=== PATIENT | female | born 1935 | race Caucasian/White ===

== ENCOUNTER → 2018-08-20 15:13 | Outpatient (CLI) | payer MEDICARE, MEDICAID, SELFPAY ==
--- NOTE | 2018-08-20 15:00 | TISS_PTH ---
PATIENT: GUY NICOLAS LOC: [facility] U#:[id number] AGE/SX: 89/F ROOM: RE08/20/[address]: Dr. Amanda Soares MD : [id number] BED: DIS: SPEC #: [id number] RECD: 08/20/18 21:00 STATUS: TANYA MALIHA #: [id number] PAPA: 08/20/18 15:[address]: Gurdeep Willson DEPT: SURGICAL PATHOLOGY RECD BY: Rashel Baez ENTERED: 08/21/18 08:51 SP TYPE: Tissue Bx OTHR DR: MD Dr. Moe King MD Tissues: Perineum, NOS Procedures: Surgery Specimen Level IV Comments: @ Ordering doctor for SUIV edited from to @ by ANTOINE at 08/21/18 0951 @ Submitting doctor edited from to DR.JWEEMA Harris by ANTOINE at 08/21/18 0951 HEADER OPERATION: Punch biopsy PRE-OP DIAGNOSIS: Punch biopsy TISSUE SUBMITTED: Perineum MICROSCOPIC DIAGNOSIS Perineum, punch biopsy: Moderate chronic inflammation, dermal fibrosis and hyperkeratosis. Negative for malignancy. LEILA:enoc 08/22/18 MICROSCOPIC DESCRIPTION Slides are reviewed. GROSS DESCRIPTION Received in fixative is one container labeled with the patient's name and designated punch biopsy. The specimen consists of a punch biopsy of crump-white skin measuring 0.2 cm in diameter and 0.3 cm in length. The entire specimen is submitted in one cassette. / Ania 08/21/18 TC:3 CPT: 78907
--- NOTE | 2018-08-20 15:30 | RAD_ITS ---
STUDY: X-RAY - CERVICAL SPINE REASON FOR EXAM: Female, 82 years old. Pain for many years TECHNIQUE: 4 view(s) of the cervical spine were obtained. COMPARISON: 2010 FINDINGS: Normal craniovertebral junction. There are degenerative changes of the anterior atlantoaxial articulation. Normal odontoid process. There is straightening of the normal cervical lordosis. Normal vertebral bodies and posterior osseous elements. There is evidence of anterior spondylosis at the C3-C4 level. There is evidence of fusion at the C4 C5, C5 C6, C6 C7 and C7-T1 levels. There is evidence of facet joint osteoarthritis. Normal visualized soft tissue structures. RAD/Cerv Spine 2 or 3 Views IMPRESSION: Multilevel degenerative changes with previous fusion from C4 to T1. No fracture Electronically Signed: Sarwat Otero MD at 17:45 EDT , Service support ,
== END ==
PROVIDERS: Family Provider Internal Medicine Infectious Disease; PCP Internal Medicine Infectious Disease; Referring Provider Anesthesiology Pain Medicine; Visit Provider Anesthesiology Pain Medicine
DX: M54.2 Cervicalgia (principal)
CPT/HCPCS: 72040; 88305

== ENCOUNTER → 2018-12-17 11:25 | Outpatient (CLI) | payer MEDICARE, MEDICAID, SELFPAY ==
--- NOTE | 2018-12-17 11:35 | RAD_ITS ---
STUDY: X-RAY - CERVICAL SPINE REASON FOR EXAM: Female, 83 years old. Neck pain. TECHNIQUE: 3 view(s) of the cervical spine were obtained. COMPARISON: August 20, 2018. FINDINGS: Normal anterior atlantoaxial articulation. Normal odontoid process. Postoperative changes of bony fusion C4-C5 through C6-C7. Straightening of the normal cervical lordosis. Disc space narrowing and marginal osteophytes C3-C4 and C7-T1. The soft tissue structures are unremarkable. RAD/Cerv Spine 2 or 3 Views IMPRESSION: Stable postoperative changes of cervical fusion, C4-C7. Degenerative changes proximal and distal to the fusion site. Electronically Signed: Samson Saravia MD at 5:33 EST , Service support ,
== END ==
PROVIDERS: Family Provider Internal Medicine Infectious Disease; PCP Internal Medicine Infectious Disease; Referring Provider Anesthesiology Pain Medicine; Visit Provider Anesthesiology Pain Medicine
DX: M54.2 Cervicalgia (principal)
CPT/HCPCS: 72040

== ENCOUNTER → 2019-05-27 | Outpatient (CLI) | payer MEDICARE, MEDICAID, SELFPAY ==
--- NOTE | 2019-05-27 13:55 | RAD_ITS ---
STUDY: X-RAY - CERVICAL SPINE REASON FOR EXAM: Female, 83 years old. Chronic neck pain. TECHNIQUE: 2 view(s) of the cervical spine were obtained. COMPARISON: 08/20/2018, 12/17/2018 FINDINGS: Normal anterior atlantoaxial articulation. Normal odontoid process. Again seen is long segment fusion of the cervical spine from C4-C7. Stable prominent degenerative disc disease at C3-C4 and C7-T1. No gross acute abnormality. The soft tissue structures are unremarkable. RAD/Cerv Spine 2 or 3 Views IMPRESSION: Limited 2 view study of the cervical spine shows no change. Long segment fusion, and degenerative changes. Electronically Signed: Jackson Guerra MD at 17:24 EDT , Service support ,
== END | disposition home or self-care (01) ==
LOC: RAD 13:46
PROVIDERS: Family Provider Internal Medicine Infectious Disease; PCP Internal Medicine Infectious Disease; Referring Provider Anesthesiology Pain Medicine; Visit Provider Anesthesiology Pain Medicine
DX: M54.2 Cervicalgia (principal)
CPT/HCPCS: 72040

== ENCOUNTER → 2019-09-24 | Outpatient (CLI) | payer MEDICARE, MEDICAID, SELFPAY ==
--- NOTE | 2019-09-24 12:26 | MRI_ITS ---
STUDY: MRI LUMBAR SPINE WITHOUT CONTRAST REASON FOR EXAM: Female, 83 years old. Radiculopathy. Spondylolisthesis. Degenerative disc disease. Back pain. TECHNIQUE: Standardized fat and water weighted pulse sequences were obtained in the sagittal and axial planes. COMPARISON: X-rays dated July 16, 2017 FINDINGS: Infrarenal abdominal aortic aneurysm measuring up to 5.5 cm x 5 cm with aortoiliac stenting (axial image 14 series 6). Paraspinal muscle atrophy. Normal retroperitoneum. Hepatomegaly. Small renal cyst. Lumbar lordosis preserved. No significant scoliosis. Patient slightly tilted to the right. Conus medullaris terminates normally at the T12 level. Acute/subacute compression deformities with bone marrow edema at the L2 levels. No retropulsion. No dislocation. L2 superior endplate loss of approximately 30%. Chronic L1 superior endplate loss of approximately 60 %. Chronic L3 superior endplate compression fracture with approximately 30% height loss. T12-L1: Shallow disc bulge. Normal bilateral facet joints. Normal central canal and bilateral lateral recesses. Normal bilateral intervertebral neural foramina. Mild endplate spondylosis. L1-2: Shallow disc bulge. Facet joint arthrosis. Normal central canal and bilateral lateral recesses. Normal bilateral intervertebral neural foramina. Mild endplate spondylosis. L2-3: Shallow disc bulge. Facet joint arthrosis. Normal central canal and bilateral lateral recesses. Normal bilateral intervertebral neural foramina. Moderate endplate spondylosis with additional degenerative/reactive edema. L3-4: Shallow disc bulge. Facet joint arthrosis. Normal central canal and bilateral lateral recesses. Normal bilateral intervertebral neural foramina. Minimal endplate spondylosis. L4-5: Disc bulge/uncovering with minimal central canal narrowing. Facet joint arthrosis. Normal bilateral lateral recesses. Bilateral neural foraminal narrowing without impingement. Grade 1 degenerative spondylolisthesis. Vacuum phenomenon. Minimal endplate spondylosis. L5-S1: Disc bulge with mild central canal narrowing. Facet joint arthrosis. Normal bilateral lateral recesses. Bilateral neural foraminal narrowing with impingement. Moderate endplate spondylosis. Vacuum phenomenon. MRI/Spine Lumbar (Routine) IMPRESSION: Acute/subacute L2 superior endplate compression deformity without retropulsion Chronic L1 and L3 vertebral body compression deformity Multilevel intervertebral disc disease with mild central canal narrowing at L4-5 and L5-S1 Multilevel neural foraminal narrowing with impingement of the exiting L5 nerve roots Grade 1 spondylolisthesis at L4-5 Exaggerated lumbar lordosis with moderate osteoarthritis 5.5 cm infrarenal abdominal aortic aneurysm with aortoiliac stent Electronically Signed: Mehdi Rivera DO at 14:26 EST Tel , Service support ,
== END | disposition home or self-care (01) ==
PROVIDERS: Family Provider Student in an Organized Health Care Education/Training Program; PCP Student in an Organized Health Care Education/Training Program; Referring Provider Orthopaedic Surgery Orthopaedic Surgery of the Spine; Visit Provider Orthopaedic Surgery Orthopaedic Surgery of the Spine
DX: M43.16 Spondylolisthesis, lumbar region (principal); M51.36 Other intervertebral disc degeneration, lumbar region; M54.16 Radiculopathy, lumbar region
CPT/HCPCS: 72148

== ENCOUNTER → 2020-09-23 14:31 | Outpatient (CLI) | payer MEDICARE, MEDICAID, SELFPAY ==
--- NOTE | 2020-09-23 14:34 | CT_ITS ---
STUDY: CTA OF THE ABDOMINAL AORTA AND BILATERAL LOWER EXTREMITIES REASON FOR EXAM: Female, 84 years old. Abdominal aortic aneurysm, prior grafting, hypertension. Prior cholecystectomy, appendectomy. RADIATION DOSAGE (If Supplied By Facility): CTDIvol = ( 29.62 ) mGy, DLP = ( 783.86 ) mGycm TECHNIQUE: Axial CT angiography multi-detector data acquisition was obtained from the lung bases to the pubic symphysis following intravenous administration of IV 75mL Isovue-370. Axial images and MIP images were reconstructed from the axial data set. Post-processing of the angiographic images was performed, with multiplanar reformation and 3D reconstruction. Individualized dose optimization techniques were used for this CT. TECHNICAL QUALITY: Good COMPARISON: None. Descriptors of Narrowing: None (0%) Mild (< 50%) Moderate (50-70%) Severe (70-90%) Subtotal/Total Occlusion (90-100%) Non-Evaluable (technically non-diagnostic FINDINGS: Abdominal aorta: 3.8 cm abdominal aortic aneurysm treated with aortic stent graft which is patent. No enhancement of the aneurysm sac to suggest endoleak. Celiac and superior mesenteric arteries: No demonstrated narrowing. Inferior mesenteric artery: Excluded and occluded. Right renal artery(arteries): No demonstrated narrowing. Left renal artery(arteries): No demonstrated narrowing. Right common iliac artery: No demonstrated narrowing. Right external iliac artery: No demonstrated narrowing. Right internal iliac artery: No demonstrated narrowing. Left common iliac artery: No demonstrated narrowing. Left external iliac artery: No demonstrated narrowing. Left internal iliac artery: No demonstrated narrowing. CT/CT ANGIO ABD&PEL W/O&W/DYE IMPRESSION: 3.8 cm abdominal aortic aneurysm treated with aortic stent graft which is patent and without evidence of endoleak. Electronically Signed: Zack Mcqueen MD at 17:19 EST Tel , Service support ,
== END ==
PROVIDERS: PCP Student in an Organized Health Care Education/Training Program; Referring Provider Surgery Vascular Surgery; Visit Provider Surgery Vascular Surgery
DX: I71.4 Abdominal aortic aneurysm, without rupture (principal); I65.23 Occlusion and stenosis of bilateral carotid arteries; I70.213 Atherosclerosis of native arteries of extremities with intermittent claudication, bilateral legs
CPT/HCPCS: 74174; Q9967

== ENCOUNTER 2022-02-07 08:54 | Outpatient (CLI) | payer MEDICARE, MEDICAID, SELFPAY ==
--- NOTE | 2022-02-07 09:04 | AAVD_ITS ---
Reason For Study: AAA Aorta Measurements Aorta Doppler Measurements Proximal aorta measures2.3 x 1.71cm. in cross- Peak systolic flow velocities within the proximal sectional axis. aorta measure 99.0 cm/sec. Proximal aorta measures2.18cm. in longitudinal Peak systolic flow velocities within the mid aorta axis. measure 96.4 cm/sec. Mid aorta measures1.74 x 1.58cm. in cross- Peak systolic flow velocities within the distal sectional axis. aorta measure 83.4 cm/sec. Mid aorta measures1.71cm. in longitudinal axis. Distal aorta measures1.56 x 1.41cm. in cross- sectional axis. Distal aorta measures1.47cm. in longitudinal axis. Sac measures 3.78 x 3.97 x 4.06 cm. No flow noted in the residual sac. Left Iliac Artery Left iliac artery measures .94 x .95 cm. in the cross-sectional axis. Left iliac artery measures .9 cm. in the longitudinal axis. Peak systolic velocity in the left iliac artery measures 77.1 cm/sec. Right Iliac Artery Right iliac artery measures 1.32 x 1.33 cm. in the cross-sectional axis. Right iliac artery measures 1.27 cm. in the longitudinal axis. Peak systolic velocity in the right iliac artery measures 40.8 cm/sec. Procedure Aorta IVC Iliac vasculature or bypass grafts 59209. The exam was diagnostic. Exam performed in department. VL/Abd Aortic/IVC Duplex scan Interpretation Summary No evidence of aortic iliac stenosis or aneurysm noted. Ordering Physician: Patrick López Performed By: Miguel Saldana RVBalbina
== END 2022-02-07 23:59 | disposition home or self-care (01) ==
LOC: CVS 08:57
PROVIDERS: PCP Student in an Organized Health Care Education/Training Program; Visit Provider Surgery Vascular Surgery
DX: I71.4 Abdominal aortic aneurysm, without rupture (principal); F17.200 Nicotine dependence, unspecified, uncomplicated
CPT/HCPCS: 93978

== ENCOUNTER 2023-02-22 10:02 | Observation (INO) | payer MEDICARE, MEDICAID, SELFPAY ==
[2023-02-22] VITALS (10 sets, daily range): BP systolic 99–224; BP diastolic 48–91; PULSE 50–66; RESP 16–18; TEMP 36.1–36.8; O2SAT 94–99; BMI 26.2; BMI 25.4
--- NOTE | 2023-02-22 10:18 | EX.ED.DYSGE1 ---
HPI History of Present Illness Chief Complaint: Hypertension Detail of Chief Complaint: High blood pressure Informant: patient Narrative Narrative: Patient presents to the emergency department for complaint of elevated blood pressure. Patient was seen as an outpatient and had some studies done this morning so she has abdominal aortic duplex and ABIs. She was noted to be hypertensive and referred to the emergency department. Patient denies headache. She denies chest pain. She describes some mild dyspnea and just has not felt well for couple of days. She denies urinary symptoms. Patient thinks she was given her medications this morning as she is at an assisted living facility but she tells me that she is a poor historian and does not remember things well. [facility] Medical History (Updated 02/22/23 @ 12:[address] Jasbir Knowles, ) COVID-19 Home Medications duloxetine 30 mg capsule,delayed release 60 mg PO BREAKFAST 07/27/16 [History Last Taken 02/21/23] gabapentin 300 mg capsule 300 mg PO DAILY 07/27/16 [History Last Taken 02/21/23] acetaminophen 500 mg tablet (Tylenol Extra Strength) 1,000 mg PO TID 01/28/23 [History Last Taken 02/21/23] cholecalciferol (vitamin D3) 50 mcg (2,000 unit) capsule 50 mcg PO DAILY 01/28/23 [History Last Taken 02/21/23] estradiol 0.01% (0.1 mg/gram) vaginal cream 1 applic vaginal MOWEFR . 01/28/23 [History Last Taken 02/20/23] losartan 25 mg tablet 75 mg PO DAILY . 01/28/23 [History Last Taken 02/22/23] melatonin 5 mg capsule 5 mg PO QHS SLEEP 01/28/23 [History Last Taken 02/21/23] methimazole 5 mg tablet 2.5 mg PO DAILY 01/28/23 [History Last Taken 02/21/23] metoprolol succinate 50 mg tablet,extended release 24 hr 1 tablet PO DAILY 01/28/23 [History Last Taken 02/22/23] sennosides 8.6 mg-docusate sodium 50 mg capsule (Senna Plus) 1 tab-cap PO BID 01/28/23 [History Last Taken 02/21/23] sertraline 25 mg tablet 75 mg PO DAILY 01/28/23 [History Last Taken 02/21/23] polyethylene glycol 3350 17 gram/dose oral powder (Miralax) 17 g PO DAILY CONSTIPATION 02/22/23 [History Last Taken 02/21/23] Allergy/AdvReac Type Severity Reaction Status Date / Time No Known Allergies Allergy Verified 02/22/23 10:05 Social History Smoking Status: Unknown if ever smoked ROS ROS ED Review of Systems ROS Unobtainable: other Constitutional Constitutional ED: Reports lethargy; Denies chills, fever(s), sweats or weight loss Eyes Eyes: Denies blurry vision, change in vision or diplopia ENT ENT ED: Denies rhinorrhea or sore throat Cardiovascular Cardiovascular: Denies chest pain, orthopnea or racing heartbeat Respiratory/Chest Respiratory/Chest: Reports dyspnea and dyspnea on exertion; Denies cough, orthopnea or sputum Gastrointestinal Gastrointestinal: Denies abdominal pain, diarrhea, nausea or vomiting Genitourinary Genitourinary ED: Denies dysuria, hematuria or urinary frequency Musculoskeletal Musculoskeletal: Denies arthralgias, back pain, myalgias or neck pain Integumentary Denies abscess, Abrasions or rash Neurologic Neurologic: Reports weakness; Denies headache(s) Psychiatric Psychiatric: Denies anxiety, depression or suicidal thoughts Endocrine Endocrinology: Denies polydipsia, polyphagia or polyuria Hematologic/Lymphatic Hematologic/Lymphatic: Denies easy bleeding, easy bruising or lymphadenopathy Allergic/Immunologic Allergic/Immunologic ED: Denies mouth swelling, tongue swelling or urticaria EXAM Physical Exam Const Vital Signs: 02/22/23 10:03 02/22/23 10:17 02/22/23 10:18 Temperature 97 F L Temperature Source Temporal Pulse Rate 50 L 53 L Respiratory Rate 18 16 Respiratory Pattern Normal Blood Pressure 215/91 H 224/91 H Blood Pressure Mean 132 135 Pulse Ox 98 98 Oxygen Delivery Method Room Air Room Air 02/22/23 10:42 02/22/23 12:01 Temperature Temperature Source Pulse Rate 57 L 56 L Respiratory Rate 16 17 Respiratory Pattern Blood Pressure 215/88 H 205/90 H Blood Pressure Mean 130 117 Pulse Ox 97 Oxygen Delivery Method Room Air Positive well nourished and well developed General Appearance ED: well developed and NAD HEENT Reports TM's clear and moist mucous membranes normocephalic and atraumatic; Negative for trauma or tenderness Tympanic Membrane ED: Yes TM's clear Eyes PERRL and EOMs intact bilaterally General Eye ED: Negative for pale conjunctiva or scleral icterus Neck no lymphadenopathy, supple and no JVD General: Negative for tenderness Chest Wall inspection of chest normal and palpation of chest normal Chest: Negative for tenderness Resp normal respiratory effort and clear to auscultation bilaterally Effort and Inspection: Negative for respiratory distress or pain with movement Auscultation: Negative for rhonchi, wheezes or diminished lung sounds Cardio regular rate, regular rhythm, S1 normal heart sound, S2 normal heart sound and no murmurs Peripheral Pulses: pulses 2+ throughout GI normal to inspection, nondistended, normoactive bowel sounds, soft to palpation, non-tender, non-distended and no masses Back/Spine no CVA tenderness and no thoracic nor lumbar tenderness Extremity normal to inspection General Extremety ED: Negative for edema General Extremity: Negative for edema Neuro oriented x3, CN's II-XII intact bilaterally, no sensory deficits noted and gait normal Sensorium / Orientation: awake, alert, oriented to person, oriented to place and oriented to time Motor Exam: strength 5/5 throughout and strength abnormal Psych mental status grossly normal Skin no rashes or lesions noted and no wounds MDM MDM MDM Narrative Medical decision making narrative: Patient presents to the emergency department complaint of elevated blood pressures today. Her abdominal ultrasound to evaluate her aorta was unremarkable. Patient was given hydralazine 10 mg IV. CBC with differential was normal. Chemistries unremarkable. Urinalysis was normal. Patient's blood pressure remained similarly after hydralazine with systolic around 215 and diastolic did improve into the 80s. I ordered 5 more milligrams of hydralazine IV. I discussed case with hospitalist who will admit patient and recommended 0.2 mg of clonidine p.o. Patient will be admitted for hypertensive urgency to manage her blood pressures. Lab Data Labs: Laboratory Results - last 24 hr 02/22/23 02/22/23 02/22/23 10:13 10:13 10:13 WBC 9.6 RBC 4.24 Hgb 13.7 Hct 42.7 MCV 100.7 H MCH 32.3 H MCHC 32.1 RDW Std Deviation 50.0 H RDW Coeff of Carolyn 13.3 Plt Count 306 MPV 9.0 Immature Gran % (Auto) 0.300 Neut % (Auto) 63.9 Lymph % (Auto) 23.8 [place] % (Auto) 9.4 Eos % (Auto) 2.3 Baso % (Auto) 0.3 Absolute Neuts (auto) 6.1 Absolute Lymphs (auto) 2.29 Nucleated RBC % 0 PT 13.8 INR 1.1 Sodium 138 Potassium 3.9 Chloride 102 Carbon Dioxide 29.0 Anion Gap 7 BUN 21 H Creatinine 0.78 Estim Creat Clear Calc 39.27 Est GFR (MDRD) Af Amer 89 Est GFR (MDRD) Non-Af 74 BUN/Creatinine Ratio 26.8 H Glucose 112 H Calcium 10.1 Troponin I High Sens 11 Urine Color Urine Clarity Urine pH Ur Specific Twain Urine Protein Urine Glucose (UA) Urine Ketones Urine Occult Blood Urine Nitrite Urine Bilirubin Urine Urobilinogen Ur Leukocyte Esterase Urine RBC Urine WBC Ur Squamous Epith Cells Urine Bacteria Urine Mucus 02/22/23 10:40 WBC RBC Hgb Hct MCV MCH MCHC RDW Std Deviation RDW Coeff of Carolyn Plt Count MPV Immature Gran % (Auto) Neut % (Auto) Lymph % (Auto) [place] % (Auto) Eos % (Auto) Baso % (Auto) Absolute Neuts (auto) Absolute Lymphs (auto) Nucleated RBC % PT INR Sodium Potassium Chloride Carbon Dioxide Anion Gap BUN Creatinine Estim Creat Clear Calc Est GFR (MDRD) Af Amer Est GFR (MDRD) Non-Af BUN/Creatinine Ratio Glucose Calcium Troponin I High Sens Urine Color Yellow Urine Clarity Clear Urine pH 8.0 Ur Specific Twain 1.015 Urine Protein Negative Urine Glucose (UA) Normal Urine Ketones Negative Urine Occult Blood Negative Urine Nitrite Negative Urine Bilirubin Negative Urine Urobilinogen Normal Ur Leukocyte Esterase 25 H Urine RBC 0 SEEN Urine WBC 0-5 SEEN Ur Squamous Epith Cells 0 SEEN Urine Bacteria 0 SEEN Urine Mucus 0 SEEN EKG Initial EKG: Attestation: I personally reviewed and interpreted this EKG as follows: Comments: Sinus bradycardia with a rate of 54 bpm with no acute ST segment changes Discharge Plan Triage Chief Complaint: Hypertension ED Provider: Jasbir Knowles Dx/Rx/DC Orders Clinical Impression: Hypertensive urgency, History of Parkinson's disease, History of chronic back pain Prescriptions: No Action methimazole 5 mg tablet 2.5 mg PO DAILY acetaminophen [Tylenol Extra Strength] 500 mg tablet 1,000 mg PO TID cholecalciferol (vitamin D3) 50 mcg (2,000 unit) capsule 50 mcg PO DAILY metoprolol succinate 50 mg tablet extended release 24 hr 1 tablet PO DAILY sertraline 25 mg tablet 75 mg PO DAILY estradiol 0.01 % (0.1 mg/gram) cream 1 applic vaginal MOWEFR losartan 25 mg tablet 75 mg PO DAILY Senna Plus 8.6-50 mg capsule 1 tab-cap PO BID melatonin 5 mg capsule 5 mg PO QHS polyethylene glycol 3350 [Miralax] 17 gram/dose Powder 17 g PO DAILY gabapentin 300 MG capsule 300 mg PO DAILY duloxetine 30 MG capsule 60 mg PO BREAKFAST Primary Care Provider: Adreinne Mac Referrals: Adrienne Mac MD [Primary Care Provider] - Disposition Disposition: Acute Care Hospital [facility]
[2023-02-22 10:32] LABS: Absolute Lymphocyte Count 2.29 X10^3/uL (0.83-4.51); Absolute Neutrophil Count 6.1 X10^3/uL (2.0-7.7); Basophil# 0.03 X10^3/uL; Basophil% 0.3 % (0-1); Eosinophil# 0.22 X10^3/uL; Eosinophils% 2.3 % (0-5); Hematocrit 42.7 % (37-47); Hemoglobin 13.7 g/dL (12.0-15.0); Lymphocyte # 2.29 X10^3/ul (0.83-4.51); Lymphocyte % 23.8 % (19-41); Mean Corp Hgb Conc 32.1 g/dL (32-36); Mean Corpuscular Hgb 32.3 pg (27.0-32.0); Mean Corpuscular Volume 100.7 fL (81-99); Monocyte% 9.4 % (0-10); NRBC Flagged by Analyzer 0 % (0-5); Neutrophil # 6.14 X10^3/uL (2.7-7.7); Neutrophil % 63.9 % (47-70); Platelet Count 306 K/mm3 (150-450); RBC Distribution Width CV 13.3 % (11.6-14.6); Red Blood Count 4.24 M/mm3 (4.2-5.4); White Blood Count 9.6 K/mm3 (4.4-11.0)
[2023-02-22] MEDS: 0.9% Normal Saline 1,000 ML 150 ML IV (10:40)
[2023-02-22 10:41] LABS: International Normalized Ratio 1.1; Prothrombin Time (Protime)PT. 13.8 SECONDS (11.7-14.9)
[2023-02-22] MEDS: hydrALAZINE 20 MG/ML Vial 10 MG IV ×2 (10:41→14:11)
[2023-02-22 10:44] LABS: Bacteria 0 SEEN /hpf (None Seen); Mucous, Urine 0 SEEN /hpf (<or=2+); Red Blood Cells-Urine 0 SEEN /hpf (0-5); Squamous Epithelial Cells - UA 0 SEEN /hpf (5-10)
[2023-02-22 10:49] LABS: Anion Gap 7 (5-15); BUN 21 mg/dL (7-18); BUN/Creat Ratio 26.8 RATIO (10-20); Calcium,Total 10.1 mg/dL (8.5-10.1); Chloride 102 mmol/L (98-107); Creatinine, Serum 0.78 mg/dL (0.55-1.02); EST Glomerular Filtration Rate 74 mL/min (>60); Est Glom Filt Rate - Afr Amer 89 mL/min (>60); Estimated Creatinine Clearance 39.27 ml/min; Glucose 112 mg/dL (74-106); Potassium 3.9 mmol/L (3.5-5.1); Sodium Level 138 mmol/L (136-145); Troponin-I HS 11 pg/mL (3.0-54.0)
[2023-02-22 10:52] LABS: Color, Urine Yellow (Yellow); Glucose, Dipstick Normal (Normal); Ketone-Dipstick Negative (Negative); Leukocyte Esterase-Dipstick 25 /ul (Negative); Nitrite-Dipstick Negative (Negative); Occult Blood-Urine Negative /ul (Negative); Protein-Dipstick Negative (Negative); Specific Gravity, Urine 1.015 (1.002-1.030); Urine Bilirubin Dipstick Negative (Negative); Urine Clarity Clear (Clear); Urine Urobilinogen Normal (Normal)
[2023-02-22 11:48] LABS: White Blood Cells 0-5 SEEN /hpf (0-5)
--- NOTE | 2023-02-22 11:58 | HP.PCM.HOS_ITS ---
HPI - General General Date of Admission: 02/22/23 Date of Service: 02/22/23 Chief Complaint: elevated blood pressure HPI Narrative GUY NICOLAS, is a 87 F with a PMH as outlined who presents via the ED on 02/22/2023 with a complaint of elevated blood pressure. She had been seen on outpatient basis and was sent in due to her blood pressure being up in the 200s systolic. She denied any headache, chest pain, palpitations, dizziness, nausea, vomiting or diarrhea. She admitted to occasional shortness of breath. Revie wof systems was otherwise negative. She says she did take her BP meds this morning. Vials were BP of 215/88, ME of 57, RR of 16 and she was saturating at 97% on room air. CBC was unremarkable and BMP was also unremarkable. Urinalysis was largely normal. EKG showed no acute ST changes. She is being admitted to be managed for hypertensive urgency. [facility] Medical History (Updated 02/22/23 @ 12:[address] Jasbir Knowles, ) COVID-19 Home Medications duloxetine 30 mg capsule,delayed release 60 mg PO BREAKFAST 07/27/16 [History Last Taken 02/21/23] gabapentin 300 mg capsule 300 mg PO DAILY 07/27/16 [History Last Taken 02/21/23] acetaminophen 500 mg tablet (Tylenol Extra Strength) 1,000 mg PO TID 01/28/23 [History Last Taken 02/21/23] cholecalciferol (vitamin D3) 50 mcg (2,000 unit) capsule 50 mcg PO DAILY 01/28/23 [History Last Taken 02/21/23] estradiol 0.01% (0.1 mg/gram) vaginal cream 1 applic vaginal MOWEFR . 01/28/23 [History Last Taken 02/20/23] losartan 25 mg tablet 75 mg PO DAILY . 01/28/23 [History Last Taken 02/22/23] melatonin 5 mg capsule 5 mg PO QHS SLEEP 01/28/23 [History Last Taken 02/21/23] methimazole 5 mg tablet 2.5 mg PO DAILY 01/28/23 [History Last Taken 02/21/23] metoprolol succinate 50 mg tablet,extended release 24 hr 1 tablet PO DAILY 01/28/23 [History Last Taken 02/22/23] sennosides 8.6 mg-docusate sodium 50 mg capsule (Senna Plus) 1 tab-cap PO BID 01/28/23 [History Last Taken 02/21/23] sertraline 25 mg tablet 75 mg PO DAILY 01/28/23 [History Last Taken 02/21/23] polyethylene glycol 3350 17 gram/dose oral powder (Miralax) 17 g PO DAILY CONSTIPATION 02/22/23 [History Last Taken 02/21/23] Allergy/AdvReac Type Severity Reaction Status Date / Time No Known Allergies Allergy Verified 02/22/23 10:05 Social History Smoking Status: Former smoker ROS Constitutional Constitutional: Denies anorexia, change in weight, fatigue, fever(s), malaise or weakness Eyes Eyes: Denies change in vision ENT HEENT: Denies dysphagia or headache(s) Cardiovascular Cardiovascular: Denies chest pain, dyspnea on exertion, edema, lightheadedness, orthopnea, palpitations, rapid heart rate or syncope Respiratory/Chest Respiratory/Chest: Denies cough, dyspnea, productive cough, shortness of breath at rest or shortness of breath with exertion Gastrointestinal Gastrointestinal: Reports constipation; Denies diarrhea, nausea or vomiting Genitourinary Genitourinary: Denies burning urination, dysuria or hematuria Musculoskeletal Musculoskeletal: Denies arthralgias or joint pain Neurologic Neurologic: Denies confusion, dizziness, focal weakness, headache(s), numbness or seizure-like activity Psychiatric Psychiatric: Denies anxiety or depression Endocrine Endocrinology: Denies change in body appearance Hematologic/Lymphatic Hematologic/Lymphatic: Denies anemia Vital Signs Vital Signs Vital Signs: 02/22/23 10:03 02/22/23 10:17 02/22/23 10:18 Temperature 97 F L Temperature Source Temporal Pulse Rate 50 L 53 L Respiratory Rate 18 16 Respiratory Pattern Normal Blood Pressure 215/91 H 224/91 H Blood Pressure Mean 132 135 Pulse Ox 98 98 Oxygen Delivery Method Room Air Room Air 02/22/23 10:42 Temperature Temperature Source Pulse Rate 57 L Respiratory Rate 16 Respiratory Pattern Blood Pressure 215/88 H Blood Pressure Mean 130 Pulse Ox 97 Oxygen Delivery Method Room Air Weight Weight: 167 lb 5.294 oz Body Mass Index (BMI) 26.2 Physical Exam Const alert, oriented x3 and no apparent distress General Appearance: cooperative HEENT normocephalic, head/scalp atraumatic, hearing grossly normal bilaterally and moist oral mucous membranes Mouth: oral and palatal mucosa normal Eyes PERRL, EOMs intact bilaterally and conjunctivae normal Neck no lymphadenopathy and supple Resp normal respiratory effort, no retractions, no use of accessory muscles and clear to auscultation bilaterally Cardio regular rate, regular rhythm, S1 normal heart sound, S2 normal heart sound and no murmurs GI normal to inspection, nondistended, normoactive bowel sounds, soft to palpation, non-tender and non-distended Extremity normal to inspection, full ROM and no clubbing, cyanosis or edema Neuro oriented x3, CN's II-XII intact bilaterally and moves all extremities Sensorium / Orientation: awake and alert Coordination / Balance: [id number] test normal Motor Exam: strength 5/5 throughout Psych affect normal Results Lab / Micro Data Result Diagrams: 02/22/23 10:13 02/22/23 10:13 Labs: Laboratory Results - last 24 hr 02/22/23 10:13: WBC 9.6, RBC 4.24, Hgb 13.7, Hct 42.7, MCV 100.7 H, MCH 32.3 H, MCHC 32.1, RDW Std Deviation 50.0 H, RDW Coeff of Carolyn 13.3, Plt Count 306, MPV 9.0, Immature Gran % (Auto) 0.300, Neut % (Auto) 63.9, Lymph % (Auto) 23.8, [place] % (Auto) 9.4, Eos % (Auto) 2.3, Baso % (Auto) 0.3, Absolute Neuts (auto) 6.1, Absolute Lymphs (auto) 2.29, Nucleated RBC % 0 02/22/23 10:13: PT 13.8, INR 1.1 02/22/23 10:13: Sodium 138, Potassium 3.9, Chloride 102, Carbon Dioxide 29.0, Anion Gap 7, BUN 21 H, Creatinine 0.78, Estim Creat Clear Calc 39.27, Est GFR (MDRD) Af Amer 89, Est GFR (MDRD) Non-Af 74, BUN/Creatinine Ratio 26.8 H, Glucose 112 H, Calcium 10.1, Troponin I High Sens 11 02/22/23 10:40: Urine Color Yellow, Urine Clarity Clear, Urine pH 8.0, Ur Specific [place] 1.015, Urine Protein Negative, Urine Glucose (UA) Normal, Urine Ketones Negative, Urine Occult Blood Negative, Urine Nitrite Negative, Urine Bilirubin Negative, Urine Urobilinogen Normal, Ur Leukocyte Esterase 25 H, Urine RBC 0 SEEN, Urine WBC 0-5 SEEN, Ur Squamous Epith Cells 0 SEEN, Urine Bacteria 0 SEEN, Urine Mucus 0 SEEN Assessment & Plan Assessment/Plan (1) Hypertensive urgency: PLAN: Plan #Hypertensive urgency * patient presented at outpatient imaging for abdominal USG to evaluate her pre existing abdominal aortic aneurysm. She was found to be markedly hypertensive there and referred to ED * BP in the 215s systolic in [facility] ED. She says she took her BP meds this morning but doesnt remember the names * was given IV hydralazine in the ED. * will admit to PCU * give 0.2mg x 1 of clonidine * on metoprolol 50mg daily as well as losartan 75mg daily. Will increase metoprolol to 100mg daily and increase losartan to 100mg daily. Add on HCTZ 25mg daily * IV hydralazine prn * #History of atrial fibrillation: on metoprolol #Hyperthyroidism: on methimazole #Depression; on sertraline DVT prophylaxis: lovenox COde status: Full code unverified * Patient counseled extensively about different types of CODE STATUS including full code, DNR CCA and DNR CCA. Patient appeared to be uncomfortable and confused and kept saying she did not know. We will therefore enter as full code for now. Total [id number] time 16 minutes. Total time spent on evaluation and management of patient, reviewing chart and specialist notes, discussing plan with patient, discussion with nursing and ancillary staff as well as documentation: 78 mins Charges/Coding Visit Charges Inpatient E&M: 88623 Init Hosp L3 Procedures Hospitalists Procedures: 40620 Advncd Care Plan 30 Min
[2023-02-22] MEDS: hydrALAZINE 20 MG/ML Vial 5 MG IV (12:08)
[2023-02-22] MEDS: cloNIDine HCl 0.2 MG Tablet PO (12:32)
--- NOTE | 2023-02-22 13:26 | ECHOD_ITS ---
Reason For Study: HTN Procedure This was a 2D Doppler, Color Flow transthoracic echocardiogram. The study was technically difficult. Exam performed portable in patient room. Left Ventricle Normal LV size. Mild concentric left ventricular hypertrophy. The left ventricular ejection fraction is 65 %. Unable to assess diastolic function based on available data. Right Ventricle Normal right ventricle. Atria The left and right atria are normal. Mitral Valve Mild diffuse mitral valve thickening. Trivial mitral valve insufficiency. Tricuspid Valve Normal tricuspid valve. Aortic Valve The aortic valve is not well visualized in the short axis view. Mild diffuse aortic valve thickening. There is no aortic stenosis. No aortic valve insufficiency. Pulmonic Valve The pulmonic valve is not well visualized. Great Vessels The aortic root is not well visualized. Pericardium/Pleural Epicardial fat. MMode/2D Measurements & Calculations LVIDd: 5.3 cm IVSd: 0.92 cm LVOT diam: 2.0 cm LVIDs: 3.2 cm LVPWd: 0.69 cm LVOT area: 3.0 cm2 RVDd: 3.7 cm FS: 39.6 % LA dimension: 3.9 cm LAV(MOD-bp): 45.4 ml LA A4 area: 14.8 cm2 LAV(MOD-bp) Indexed: 24.0 ml/m2 LAV(MOD-sp2): 63.5 ml LAV(MOD-sp4): 33.1 ml RA A4 area: 12.0 cm2 Time Measurements MV dec time: 0.23 sec Doppler Measurements & Calculations MV E max chas: 67.5 cm/sec Lat Peak E' Chas: 10.1 cm/sec Med Peak E' Chas: 4.9 cm/sec MV A max chas: 105.1 cm/sec E/E' lat: 6.7 E/E' med: 13.8 MV E/A: 0.64 MV V2 max: 112.2 cm/sec MV P1/2t max chas: 79.6 cm/sec Ao V2 max: 174.3 cm/sec MV max P.0 mmHg MV P1/2t: 79.0 msec Ao max P.1 mmHg MV V2 mean: 54.0 cm/sec MV dec slope: 295.0 cm/sec2 Ao V2 mean: 108.8 cm/sec MV mean P.4 mmHg Ao mean P.6 mmHg MV V2 VTI: 32.7 cm MVA(P1/2t): 2.8 cm2 Ao V2 VTI: 28.6 cm MVA(VTI): 2.2 cm2 AV (velocity ratio): 0.82 CAMI(I,D): 2.5 cm2 CAMI(V,D): 2.0 cm2 LV V1 max: 112.5 cm/sec SV(LVOT): 71.3 ml PA V2 max: 132.7 cm/sec LV V1 max P.1 mmHg LV V1 mean P.5 mmHg LV V1 mean: 73.1 cm/sec LV V1 VTI: 23.6 cm TR max chas: 188.7 cm/sec TR max P.2 mmHg ECHO/Echo Complete Interpretation Summary The study was technically difficult. Mild concentric left ventricular hypertrophy. The left ventricular ejection fraction is 65 %. Mild diffuse aortic valve thickening. Mild diffuse mitral valve thickening. Ordering Physician: Princess Erwin Performed By: Ramses Cooley RCS
[2023-02-22] MEDS: Acetaminophen 500 MG Tablet 1000 MG PO ×2 (14:10→22:04)
[2023-02-22] MEDS: hydroCHLOROthiazide 25 MG Tablet PO (14:10)
[2023-02-22] MEDS: 0.9% Saline Lock 10 ML Syringe IV (14:14)
[2023-02-22 14:26] LABS: Troponin-I HS 14 pg/mL (3.0-54.0)
[2023-02-22 17:37] LABS: Troponin-I HS 16 pg/mL (3.0-54.0)
[2023-02-22] MEDS: MELATONIN 10 MG TABLET 5 MG PO (22:04)
[2023-02-22] MEDS: Senna/Docusate Sodium 1 Tablet PO (22:04)
[2023-02-23 03:51] VITALS: BP 128/66; PULSE 60; RESP 16; TEMP 36.4; O2SAT 94
[2023-02-23] MEDS: Acetaminophen 500 MG Tablet 1000 MG PO ×3 (06:53→21:25)
[2023-02-23 07:43] LABS: Absolute Lymphocyte Count 2.32 X10^3/uL (0.83-4.51); Basophil# 0.04 X10^3/uL; Basophil% 0.4 % (0-1); Eosinophil# 0.17 X10^3/uL; Eosinophils% 1.6 % (0-5); Hematocrit 39.4 % (37-47); Hemoglobin 12.7 g/dL (12.0-15.0); Lymphocyte # 2.32 X10^3/ul (0.83-4.51); Lymphocyte % 21.6 % (19-41); Mean Corp Hgb Conc 32.2 g/dL (32-36); Mean Corpuscular Hgb 32.2 pg (27.0-32.0); Mean Platelet Vol. 9.2 fl (6.2-12.0); Monocyte# 1.22 X10^3/uL; Monocyte% 11.3 % (0-10); NRBC Flagged by Analyzer 0 % (0-5); Neutrophil # 6.97 X10^3/uL (2.7-7.7); Neutrophil % 64.7 % (47-70); Platelet Count 296 K/mm3 (150-450); RBC Distribution Width CV 13.7 % (11.6-14.6); RBC Distribution Width SD 50.1 fl (35.1-43.9); Red Blood Count 3.94 M/mm3 (4.2-5.4); White Blood Count 10.8 K/mm3 (4.4-11.0)
[2023-02-23 08:23] LABS: Anion Gap 5 (5-15); BUN 34 mg/dL (7-18); BUN/Creat Ratio 28.1 RATIO (10-20); Calcium,Total 9.2 mg/dL (8.5-10.1); Chloride 106 mmol/L (98-107); Creatinine, Serum 1.21 mg/dL (0.55-1.02); EST Glomerular Filtration Rate 45 mL/min (>60); Est Glom Filt Rate - Afr Amer 54 mL/min (>60); Estimated Creatinine Clearance 32.45 ml/min; Glucose 120 mg/dL (74-106); Potassium 3.9 mmol/L (3.5-5.1); Sodium Level 136 mmol/L (136-145)
[2023-02-23 08:48] VITALS: BP 115/55; PULSE 54; RESP 14; TEMP 36.6; O2SAT 92
[2023-02-23 08:51] VITALS: O2SAT 94
[2023-02-23] MEDS: 0.9% Saline Lock 10 ML Syringe IV (09:11)
[2023-02-23] MEDS: 0.9% Normal Saline 1,000 ML 100 ML IV (09:11)
[2023-02-23] MEDS: Enoxaparin 40 MG/0.4 ML Syringe SC (09:14)
[2023-02-23] MEDS: DULoxetine Hcl 60 MG Capsule PO (09:14)
[2023-02-23] MEDS: Senna/Docusate Sodium 1 Tablet PO ×2 (09:15→21:25)
[2023-02-23] MEDS: Sertraline 50 MG Tablet 75 MG PO (09:15)
[2023-02-23] MEDS: Cholecalciferol (VIT D3) 25 MCG TABLET (1,000 UNITS) 50 MCG PO (09:15)
[2023-02-23] MEDS: Methimazole 5 MG Tablet 2.5 MG PO (09:16)
[2023-02-23 09:18] VITALS: BP 115/55; PULSE 54
[2023-02-23] MEDS: Metoprolol(XL)Succ 100 MG Tablet PO (09:18)
[2023-02-23] MEDS: Gabapentin 300 MG Capsule PO (09:23)
--- NOTE | 2023-02-23 10:57 | NURSING ---
spoke with daughter Allison Turpin and gave update
--- NOTE | 2023-02-23 11:21 | PN_ITS ---
Subjective Subjective Patient seen and examined. She had no active complaints today. She had an uneventful night. Review of symptoms otherwise negative. Her BP has improved. Her metoprolol dose was increased yesterday, and HR is now down to the 50s. SHe has otherwise remained hemodynamically stable. Objective Data Objective Data Vital Signs: Vital Signs Temp Pulse Resp BP Pulse Ox O2 Del Method 98 F 54 L 14 115/55 L 94 Room Air 02/23/23 08:48 02/23/23 09:18 02/23/23 08:48 02/23/23 09:18 02/23/23 08:51 02/23/23 08:51 Oxygen Delivery Method Room Air Weight: 162 lb 14.746 oz Body Mass Index (BMI) 25.4 Intake & Output: Intake and Output for Last 24 Hours 02/21/23 02/22/23 02/23/23 23:59 23:59 23:59 Intake Total 620 / 620 Output Total 950 / 1350 400 / 400 Balance -330 / -730 -400 / -400 Lab / Micro Data Result Diagrams: 02/23/23 07:10 02/23/23 07:10 Labs: Laboratory Results - last 24 hr 02/22/23 10:40: Urine RBC 0 SEEN, Urine WBC 0-5 SEEN, Ur Squamous Epith Cells 0 SEEN, Urine Bacteria 0 SEEN, Urine Mucus 0 SEEN 02/22/23 13:55: Troponin I High Sens 14 02/22/23 16:34: Troponin I High Sens 16 02/23/23 07:10: WBC 10.8, RBC 3.94 L, Hgb 12.7, Hct 39.4, MCV 100.0 H, MCH 32.2 H, MCHC 32.2, RDW Std Deviation 50.1 H, RDW Coeff of Carolyn 13.7, Plt Count 296, MPV 9.2, Immature Gran % (Auto) 0.400, Neut % (Auto) 64.7, Lymph % (Auto) 21.6, [place] % (Auto) 11.3 H, Eos % (Auto) 1.6, Baso % (Auto) 0.4, Absolute Neuts (auto) 7.0, Absolute Lymphs (auto) 2.32, Nucleated RBC % 0 02/23/23 07:10: Sodium 136, Potassium 3.9, Chloride 106, Carbon Dioxide 25.0, Anion Gap 5, BUN 34 H, Creatinine 1.21 H, Estim Creat Clear Calc 32.45, Est GFR (MDRD) Af Amer 54 L, Est GFR (MDRD) Non-Af 45 L, BUN/Creatinine Ratio 28.1 H, Glucose 120 H, Calcium 9.2 Radiography Diagnostic Testing: Radiology Impression Echocardiogram 02/22/23 13:26 Interpretation Summary The study was technically difficult. Mild concentric left ventricular hypertrophy. The left ventricular ejection fraction is 65 %. Mild diffuse aortic valve thickening. Mild diffuse mitral valve thickening. Ordering Physician: Princess Erwin Performed By: Ramses Cooley RCS Physical Exam Const alert, oriented x3 and no apparent distress General Appearance: cooperative HEENT normocephalic, head/scalp atraumatic, hearing grossly normal bilaterally and moist oral mucous membranes Eyes PERRL, EOMs intact bilaterally and conjunctivae normal Neck no lymphadenopathy and supple Resp normal respiratory effort, no retractions, no use of accessory muscles and clear to auscultation bilaterally Cardio regular rate, regular rhythm, S1 normal heart sound, S2 normal heart sound and no murmurs GI normal to inspection, nondistended, normoactive bowel sounds, soft to palpation, non-tender and non-distended Extremity normal to inspection, full ROM, normal capillary refill and no clubbing, cyanosis or edema Skin General Skin Exam: no breakdown Neuro oriented x3, CN's II-XII intact bilaterally and moves all extremities Sensorium / Orientation: awake and alert Coordination / Balance: [id number] test normal Motor Exam: strength 5/5 throughout Psych affect normal Assessment & Plan Assessment/Plan (1) Hypertensive urgency: PLAN: Plan #Hypertensive urgency * resolved. BP is much better controlled today * will reduce metoprolol to 50mg daily due to her HR going down. On losartan 100mg daily and HCTZ 25mg daily * IV hydralazine prn * * #History of atrial fibrillation: on metoprolol #Hyperthyroidism: on methimazole #Depression; on sertraline DVT prophylaxis: lovenox COde status: Full code unverified * Total time spent on evaluation and management of patient, reviewing chart and specialist notes, discussing plan with patient, discussion with nursing and ancillary staff as well as documentation: 45 mins Charges/Coding Visit Charges Inpatient E&M: 25101 Subs Hosp L2
--- NOTE | 2023-02-23 11:32 | CASEMGMT ---
DASH HORTA DC Planning: Face to face with Pt. Pt alert and agreeable to answering questions. Pt states she is from [facility] but states she is not certain of her level of care (NH vs [place]). Pt states she uses a w/c to get to her puzzle activities and meals. Pt states she can ambulate short distances with a walker. Reviewed MERLOS form with pt but pt states she does not understand what this RN CM is explaining. Pt provided this RN CM permission to call her daughter Allison to review. Phone call placed to Allison, form reviewed and Allison denied any questions. Notified Allison that a copy of the MERLOS form would be placed in pt's room. Allison expressed understanding and agreement. Reviewed pt's LOC at [facility] with Allison who states pt is in the NH section. Call placed to [facility] and per Modesta pt is a director long term care resident in the intermediate level of care. Plan: Return to [facility] ILOC. Elias Choi RN CM
[2023-02-23 14:52] VITALS: BP 140/71; PULSE 61; RESP 16; TEMP 36.5; O2SAT 97
[2023-02-23] MEDS: hydroCHLOROthiazide 25 MG Tablet PO (15:01)
[2023-02-23] MEDS: Losartan Potassium 100 MG Tablet PO (15:01)
--- NOTE | 2023-02-23 17:15 | CASEMGMT ---
Social Work Note GLORIA contacted Cristy Rosario to inquire about needs for patient to return. Cristy Rosario will need discharge instructions via fax [phone] or [employer]. GLORIA sent updates via [employer]. GLORIA contacted patient's daughter, Allison, and introduced herself and role as [facility] Personal Security Specialist. GLORIA reviewed discharge plan for Cristy Rosario and inquired about transportation. Allison agreed plan is to return to [facility] and states she can transport if patient is ready tomorrow. Allison is able to transport patient after 1pm and requests to be contacted when patient is ready for discharge. Green sheet on chart. Plan: Cristy Rosario, darren to transport after 1pm Lary Andersen MSW, [place]
[2023-02-23 21:00] VITALS: BP 123/55; PULSE 55; RESP 16; TEMP 36.6; O2SAT 95
[2023-02-23] MEDS: MELATONIN 10 MG TABLET 5 MG PO (21:25)
[2023-02-24 03:52] VITALS: BP 159/65; PULSE 56; RESP 16; TEMP 36.4; O2SAT 96
[2023-02-24 04:51] LABS: Absolute Lymphocyte Count 2.37 X10^3/uL (0.83-4.51); Absolute Neutrophil Count 5.3 X10^3/uL (2.0-7.7); Basophil# 0.03 X10^3/uL; Basophil% 0.3 % (0-1); Eosinophil# 0.37 X10^3/uL; Eosinophils% 4.1 % (0-5); Hematocrit 38.8 % (37-47); Hemoglobin 12.5 g/dL (12.0-15.0); Lymphocyte # 2.37 X10^3/ul (0.83-4.51); Lymphocyte % 26.2 % (19-41); Mean Corp Hgb Conc 32.2 g/dL (32-36); Mean Corpuscular Hgb 31.8 pg (27.0-32.0); Mean Corpuscular Volume 98.7 fL (81-99); Mean Platelet Vol. 8.9 fl (6.2-12.0); Monocyte# 0.98 X10^3/uL; Monocyte% 10.8 % (0-10); NRBC Flagged by Analyzer 0 % (0-5); Neutrophil # 5.26 X10^3/uL (2.7-7.7); Neutrophil % 58.3 % (47-70); Platelet Count 267 K/mm3 (150-450); RBC Distribution Width CV 13.2 % (11.6-14.6); RBC Distribution Width SD 48.1 fl (35.1-43.9); Red Blood Count 3.93 M/mm3 (4.2-5.4)
[2023-02-24 05:18] LABS: Anion Gap 3 (5-15); BUN 30 mg/dL (7-18); BUN/Creat Ratio 36.5 RATIO (10-20); Calcium,Total 9.1 mg/dL (8.5-10.1); Chloride 109 mmol/L (98-107); Creatinine, Serum 0.82 mg/dL (0.55-1.02); EST Glomerular Filtration Rate 70 mL/min (>60); Est Glom Filt Rate - Afr Amer 85 mL/min (>60); Estimated Creatinine Clearance 47.89 ml/min; Glucose 114 mg/dL (74-106); Potassium 3.7 mmol/L (3.5-5.1); Sodium Level 137 mmol/L (136-145)
[2023-02-24] MEDS: Acetaminophen 500 MG Tablet 1000 MG PO ×2 (06:21→12:51)
[2023-02-24 07:25] VITALS: O2SAT 95
[2023-02-24 08:52] VITALS: BP 156/73; PULSE 52; RESP 16; TEMP 36.6; O2SAT 96
[2023-02-24] MEDS: Enoxaparin 40 MG/0.4 ML Syringe SC (09:01)
[2023-02-24] MEDS: Losartan Potassium 100 MG Tablet PO (09:02)
[2023-02-24] MEDS: Methimazole 5 MG Tablet 2.5 MG PO (09:02)
[2023-02-24] MEDS: hydroCHLOROthiazide 25 MG Tablet PO (09:02)
[2023-02-24] MEDS: Senna/Docusate Sodium 1 Tablet PO (09:02)
[2023-02-24 09:03] VITALS: BP 156/73; PULSE 52
[2023-02-24] MEDS: Metoprolol(XL)Succ 50 MG Tablet PO (09:03)
[2023-02-24] MEDS: Sertraline 50 MG Tablet 75 MG PO (09:03)
[2023-02-24] MEDS: DULoxetine Hcl 60 MG Capsule PO (09:04)
[2023-02-24] MEDS: Cholecalciferol (VIT D3) 25 MCG TABLET (1,000 UNITS) 50 MCG PO (09:06)
[2023-02-24] MEDS: Gabapentin 300 MG Capsule PO (09:14)
--- NOTE | 2023-02-24 10:05 | DS.PCM_ITS ---
Providers Date of Admission: 02/22/23 Primary Care Physician: Dr. Adrienne Mac MD Reason For Visit: HYPOERTENSIVE URGENCY Diagnosis Discharge Diagnosis (1) Hypertensive urgency: Status: Acute Code(s): I16.0 - Hypertensive urgency Plan #Hypertensive urgency * resolved. BP is much better controlled today * will reduce metoprolol to 50mg daily due to her HR going down. On losartan 100mg daily and HCTZ 25mg daily * IV hydralazine prn * * #History of atrial fibrillation: on metoprolol #Hyperthyroidism: on methimazole #Depression; on sertraline DVT prophylaxis: lovenox COde status: Full code unverified * Total time spent on evaluation and management of patient, reviewing chart and specialist notes, discussing plan with patient, discussion with nursing and ancillary staff as well as documentation: 45 mins Medications at Discharge Home Medications duloxetine 30 mg capsule,delayed release 60 mg PO BREAKFAST 07/27/16 gabapentin 300 mg capsule 300 mg PO DAILY 07/27/16 acetaminophen 500 mg tablet (Tylenol Extra Strength) 1,000 mg PO TID 01/28/23 cholecalciferol (vitamin D3) 50 mcg (2,000 unit) capsule 50 mcg PO DAILY 01/28/23 estradiol 0.01% (0.1 mg/gram) vaginal cream 1 applic vaginal MOWEFR . 01/28/23 melatonin 5 mg capsule 5 mg PO QHS SLEEP 01/28/23 methimazole 5 mg tablet 2.5 mg PO DAILY 01/28/23 sennosides 8.6 mg-docusate sodium 50 mg capsule (Senna Plus) 1 tab-cap PO BID 01/28/23 sertraline 25 mg tablet 75 mg PO DAILY 01/28/23 polyethylene glycol 3350 17 gram/dose oral powder (Miralax) 17 g PO DAILY CONSTIPATION 02/22/23 hydrochlorothiazide 25 mg tablet 25 mg PO DAILY #30 tabs 02/24/23 losartan 100 mg tablet 100 mg PO DAILY #30 tabs 02/24/23 metoprolol succinate 25 mg tablet,extended release 24 hr 25 mg PO DAILY #30 tabs 02/24/23 Weight / BMI Weight Weight: 162 lb 14.746 oz Body Mass Index (BMI) 25.4 ABG / Lab / Microbiology Data Result Diagrams: 02/24/23 04:30 02/24/23 04:30 Laboratory: Laboratory Results - last 24 hr 02/24/23 04:30: Sodium 137, Potassium 3.7, Chloride 109 H, Carbon Dioxide 25.0, Anion Gap 3 L, BUN 30 H, Creatinine 0.82, Estim Creat Clear Calc 47.89, Est GFR (MDRD) Af Amer 85, Est GFR (MDRD) Non-Af 70, BUN/Creatinine Ratio 36.5 H, Glucose 114 H, Calcium 9.1 02/24/23 04:30: WBC 9.0, RBC 3.93 L, Hgb 12.5, Hct 38.8, MCV 98.7, MCH 31.8, MCHC 32.2, RDW Std Deviation 48.1 H, RDW Coeff of Carolyn 13.2, Plt Count 267, MPV 8.9, Immature Gran % (Auto) 0.300, Neut % (Auto) 58.3, Lymph % (Auto) 26.2, [place] % (Auto) 10.8 H, Eos % (Auto) 4.1, Baso % (Auto) 0.3, Absolute Neuts (auto) 5.3, Absolute Lymphs (auto) 2.37, Nucleated RBC % 0 D/C Instructions Discharge Diet: Low fat / Low cholesterol Weight Bearing Status: Weight bearing as tolerated Call your doctor if you observe: Fever of 101 or Higher, Shortness of breath, Dizziness, Swelling in the ankles, Chest pain and Increased palpitations (irregu lar heartbeat) Discharge Plan Admission Admit Date/Time: 02/22/23 12:07 Primary Reason for Your Visit: hypertensive urgency Attending Provider: Princess Erwin Primary Care Provider: Adrienne Mac Instructions Patient Instructions: ED Hypertension, Established, ED High Blood Pressure Hypertension Discharge Orders/Prescriptions Prescriptions: New hydrochlorothiazide 25 mg Tablet 25 mg PO DAILY Qty: 30 2RF losartan 100 mg Tablet 100 mg PO DAILY Qty: 30 2RF metoprolol succinate 25 mg tablet extended release 24 hr 25 mg PO DAILY Qty: 30 2RF Continued methimazole 5 mg tablet 2.5 mg PO DAILY acetaminophen [Tylenol Extra Strength] 500 mg tablet 1,000 mg PO TID cholecalciferol (vitamin D3) 50 mcg (2,000 unit) capsule 50 mcg PO DAILY sertraline 25 mg tablet 75 mg PO DAILY estradiol 0.01 % (0.1 mg/gram) cream 1 applic vaginal MOWEFR Senna Plus 8.6-50 mg capsule 1 tab-cap PO BID melatonin 5 mg capsule 5 mg PO QHS polyethylene glycol 3350 [Miralax] 17 gram/dose Powder 17 g PO DAILY gabapentin 300 MG capsule 300 mg PO DAILY duloxetine 30 MG capsule 60 mg PO BREAKFAST Discontinued metoprolol succinate 50 mg tablet extended release 24 hr 1 tablet PO DAILY losartan 25 mg tablet 75 mg PO DAILY Referrals / Follow Up: Adrienne Mac MD [Primary Care Provider] - Within 2 Weeks Disposition Disposition (needs filled in before D/C Order can be placed): Home, Self Care
--- NOTE | 2023-02-24 11:29 | TREXTCAR_ITS ---
Diet Diet Order/Speech Therapy: 02/22/23 13:29 Diet: Cardiac - Heart Healthy Food consistency:: Regular Liquid Consistency:: Regular/Thin Routine Orders/Code Status Enema Type: Fleetz Enema Frequency: Daily PRN Suppository Type: Dulcolax 10mg Suppository Frequency: Daily PRN O2 Frequency: PRN Keep PO Greater than or Equal to (%): 90 Therapies Weight Bearing: Weight bearing as tolerated Physical Therapy: Eval and Treat Occupational Therapy: Eval and Treat Problem/Diagnosis (1) Hypertensive urgency: Status: Acute Code(s): I16.0 - Hypertensive urgency Plan #Hypertensive urgency * resolved. BP is much better controlled today * will reduce metoprolol to 50mg daily due to her HR going down. On losartan 100mg daily and HCTZ 25mg daily * IV hydralazine prn * * #History of atrial fibrillation: on metoprolol #Hyperthyroidism: on methimazole #Depression; on sertraline DVT prophylaxis: lovenox COde status: Full code unverified * Total time spent on evaluation and management of patient, reviewing chart and specialist notes, discussing plan with patient, discussion with nursing and an cillary staff as well as documentation: 45 mins Allergies/Procedures Done in Hospital Allergies No Known Allergies Allergy (Verified 02/22/23 10:05) Procedures: 2-D Echocardiogram Type of Care/Length of Stay Estimated LOS: Convalescent Care Less Than 30 days Type of Care Needed: Skilled Rehab Potential: Fair Prognosis: Fair Additional Orders/Day of Discharge Day of Discharge: 02/24/23 Discharge Plan Admission Admit Date/Time: 02/22/23 12:07 Primary Reason for Your Visit: hypertensive urgency Attending Provider: Princess Erwin Primary Care Provider: Adrienne Mac Instructions Patient Instructions: ED Hypertension, Established, ED High Blood Pressure Hypertension Discharge Orders/Prescriptions Prescriptions: New hydrochlorothiazide 25 mg Tablet 25 mg PO DAILY Qty: 30 2RF losartan 100 mg Tablet 100 mg PO DAILY Qty: 30 2RF metoprolol succinate 25 mg tablet extended release 24 hr 25 mg PO DAILY Qty: 30 2RF Continued methimazole 5 mg tablet 2.5 mg PO DAILY acetaminophen [Tylenol Extra Strength] 500 mg tablet 1,000 mg PO TID cholecalciferol (vitamin D3) 50 mcg (2,000 unit) capsule 50 mcg PO DAILY sertraline 25 mg tablet 75 mg PO DAILY estradiol 0.01 % (0.1 mg/gram) cream 1 applic vaginal MOWEFR Senna Plus 8.6-50 mg capsule 1 tab-cap PO BID melatonin 5 mg capsule 5 mg PO QHS polyethylene glycol 3350 [Miralax] 17 gram/dose Powder 17 g PO DAILY gabapentin 300 MG capsule 300 mg PO DAILY duloxetine 30 MG capsule 60 mg PO BREAKFAST Discontinued metoprolol succinate 50 mg tablet extended release 24 hr 1 tablet PO DAILY losartan 25 mg tablet 75 mg PO DAILY Referrals / Follow Up: Adrienne Mca MD [Primary Care Provider] - Within 2 Weeks Disposition Disposition (needs filled in before D/C Order can be placed): Home, Self Care
--- NOTE | 2023-02-24 11:42 | NURSING ---
report called to Noris BOWLING at [facility]
[2023-02-24] MEDS: Bisacodyl 10 MG Suppository RC (12:50)
--- NOTE | 2023-02-24 14:03 | PCM.DC.SUM ---
Providers Date of Admission: 02/22/23 Date of Discharge: 02/24/23 Primary Care Physician: Dr. Adrienne Mac MD Reason For Visit: HYPOERTENSIVE URGENCY Diagnosis Discharge Diagnosis (1) Hypertensive urgency: Status: Acute Code(s): I16.0 - Hypertensive urgency Plan #Hypertensive urgency resolved. BP is much better controlled today will reduce metoprolol to 50mg daily due to her HR going down. On losartan 100mg daily and HCTZ 25mg daily IV hydralazine prn #History of atrial fibrillation: on metoprolol #Hyperthyroidism: on methimazole #Depression; on sertraline DVT prophylaxis: lovenox COde status: Full code unverified Total time spent on evaluation and management of patient, reviewing chart and specialist notes, discussing plan with patient, discussion with nursing and ancillary staff as well as documentation: 45 mins Medications at Discharge Home Medications duloxetine 30 mg capsule,delayed release 60 mg PO BREAKFAST 07/27/16 gabapentin 300 mg capsule 300 mg PO DAILY 07/27/16 acetaminophen 500 mg tablet (Tylenol Extra Strength) 1,000 mg PO TID 01/28/23 cholecalciferol (vitamin D3) 50 mcg (2,000 unit) capsule 50 mcg PO DAILY 01/28/23 estradiol 0.01% (0.1 mg/gram) vaginal cream 1 applic vaginal MOWEFR . 01/28/23 melatonin 5 mg capsule 5 mg PO QHS SLEEP 01/28/23 methimazole 5 mg tablet 2.5 mg PO DAILY 01/28/23 sennosides 8.6 mg-docusate sodium 50 mg capsule (Senna Plus) 1 tab-cap PO BID 01/28/23 sertraline 25 mg tablet 75 mg PO DAILY 01/28/23 polyethylene glycol 3350 17 gram/dose oral powder (Miralax) 17 g PO DAILY CONSTIPATION 02/22/23 hydrochlorothiazide 25 mg tablet 25 mg PO DAILY #30 tabs 02/24/23 losartan 100 mg tablet 100 mg PO DAILY #30 tabs 02/24/23 metoprolol succinate 25 mg tablet,extended release 24 hr 25 mg PO DAILY #30 tabs 02/24/23 Hospital Course Operations None Procedures 2-D Echocardiogram Summary of Care Provided Minutes Spent on Discharge: 50 Hospital Course: GUY NICOLAS, is a 87 F with a PMH as outlined who presents via the ED on 02/22/2023 with a complaint of elevated blood pressure. She had been seen on outpatient basis and was sent in due to her blood pressure being up in the 200s systolic. She denied any headache, chest pain, palpitations, dizziness, nausea, vomiting or diarrhea. She admitted to occasional shortness of breath. [facility] was otherwise negative. She says she did take her BP meds this morning. Vials were BP of 215/88, [place] of 57, RR of 16 and she was saturating at 97% on room air. CBC was unremarkable and BMP was also unremarkable. Urinalysis was largely? normal. EKG showed no acute ST changes. She was admitted to be managed for hypertensive urgency. Her blood pressure trended downwards with adjustment of her BP meds. Her losartan was increased to 100 mg daily and hydrochlorothiazide 25 mg daily was added on. Metoprolol was decreased to 50mg daily due to bradycardia. She had 2D echo which showed EF of 65% with mild concentric left ventricular hypertrophy and normal left ventricular size. She remained stable and blood pressure improved. She was discharged back to shelter facility on 02/24/2023. She is follow-up with her primary care doctor and with cardiology for her meds to be adjusted as needed. Physical Exam Const alert, oriented x3 and no apparent distress General Appearance: cooperative, comfortable and well kempt Exam Limitations: no limitations HEENT normocephalic, head/scalp atraumatic, hearing grossly normal bilaterally and moist oral mucous membranes Mouth: oral and palatal mucosa normal Eyes PERRL, EOMs intact bilaterally and conjunctivae normal Neck no lymphadenopathy and supple Resp normal respiratory effort, no retractions, no use of accessory muscles and clear to auscultation bilaterally Cardio regular rate, regular rhythm, S1 normal heart sound, S2 normal heart sound and no murmurs GI normal to inspection, nondistended, normoactive bowel sounds, soft to palpation, non-tender and non-distended Extremity normal to inspection, full ROM, normal capillary refill and no clubbing, cyanosis or edema Skin no rashes or lesions noted General Skin Exam: no breakdown Neuro oriented x3, CN's II-XII intact bilaterally and moves all extremities Sensorium / Orientation: awake and alert Coordination / Balance: [id number] test normal Motor Exam: strength 5/5 throughout Psych affect normal Weight / BMI Weight Weight: 162 lb 14.746 oz Body Mass Index (BMI) 25.4 ABG / Lab / Microbiology Data Result Diagrams: 02/24/23 04:30 02/24/23 04:30 Laboratory: Laboratory Results - last 24 hr 02/24/23 04:30: Sodium 137, Potassium 3.7, Chloride 109 H, Carbon Dioxide 25.0, Anion Gap 3 L, BUN 30 H, Creatinine 0.82, Estim Creat Clear Calc 47.89, Est GFR (MDRD) Af Amer 85, Est GFR (MDRD) Non-Af 70, BUN/Creatinine Ratio 36.5 H, Glucose 114 H, Calcium 9.1 02/24/23 04:30: WBC 9.0, RBC 3.93 L, Hgb 12.5, Hct 38.8, MCV 98.7, MCH 31.8, MCHC 32.2, RDW Std Deviation 48.1 H, RDW Coeff of Carolyn 13.2, Plt Count 267, MPV 8.9, Immature Gran % (Auto) 0.300, Neut % (Auto) 58.3, Lymph % (Auto) 26.2, [place] % (Auto) 10.8 H, Eos % (Auto) 4.1, Baso % (Auto) 0.3, Absolute Neuts (auto) 5.3, Absolute Lymphs (auto) 2.37, Nucleated RBC % 0 D/C Instructions Discharge Diet: Low fat / Low cholesterol Discharge Activity: Return to Normal Activity Weight Bearing Status: Weight bearing as tolerated Call your doctor if you observe: Fever of 101 or Higher, Shortness of breath, Dizziness, Swelling in the ankles, Chest pain and Increased palpitations (irregular heartbeat) Meaningful Use Info Meaningful Use Diagnoses (Choose all that apply): None applicable Discharge Plan Admission Admit Date/Time: 02/22/23 12:07 Primary Reason for Your Visit: hypertensive urgency Attending Provider: Princess Erwin Primary Care Provider: Adrienne Mac Discharge Orders/Prescriptions Prescriptions: New hydrochlorothiazide 25 mg Tablet 25 mg PO DAILY Qty: 30 2RF losartan 100 mg Tablet 100 mg PO DAILY Qty: 30 2RF metoprolol succinate 25 mg tablet extended release 24 hr 25 mg PO DAILY Qty: 30 2RF Continued methimazole 5 mg tablet 2.5 mg PO DAILY acetaminophen [Tylenol Extra Strength] 500 mg tablet 1,000 mg PO TID cholecalciferol (vitamin D3) 50 mcg (2,000 unit) capsule 50 mcg PO DAILY sertraline 25 mg tablet 75 mg PO DAILY estradiol 0.01 % (0.1 mg/gram) cream 1 applic vaginal MOWEFR Senna Plus 8.6-50 mg capsule 1 tab-cap PO BID melatonin 5 mg capsule 5 mg PO QHS polyethylene glycol 3350 [Miralax] 17 gram/dose Powder 17 g PO DAILY gabapentin 300 MG capsule 300 mg PO DAILY duloxetine 30 MG capsule 60 mg PO BREAKFAST Discontinued metoprolol succinate 50 mg tablet extended release 24 hr 1 tablet PO DAILY losartan 25 mg tablet 75 mg PO DAILY Referrals / Follow Up: Adrienne Mac MD [Primary Care Provider] - Within 2 Weeks Disposition Disposition (needs filled in before D/C Order can be placed): Home, Self Care Charges/Coding Visit Charges Inpatient E&M: 15337 Disch Hosp >30min
== END 2023-02-24 13:08 | disposition home or self-care (01) ==
LOC: ED 12:11 → PCU 12:34
PROVIDERS: Admitting Provider Student in an Organized Health Care Education/Training Program; Emergency Provider Emergency Medicine; PCP Student in an Organized Health Care Education/Training Program; Visit Provider Student in an Organized Health Care Education/Training Program
DX: I16.0 Hypertensive urgency (principal); I70.312 Atherosclerosis of unspecified type of bypass graft(s) of the extremities with intermittent claudication, left leg; I71.43 Infrarenal abdominal aortic aneurysm, without rupture; I48.91 Unspecified atrial fibrillation; R06.02 Shortness of breath; I10 Essential (primary) hypertension; M54.9 Dorsalgia, unspecified; Z86.16 Personal history of COVID-19; G89.29 Other chronic pain; F17.200 Nicotine dependence, unspecified, uncomplicated; F32.A Depression, unspecified; Z79.899 Other long term (current) drug therapy; Z87.891 Personal history of nicotine dependence; E05.90 Thyrotoxicosis, unspecified without thyrotoxic crisis or storm
CPT/HCPCS: 36415; 80048; 81001; 84484; 85025; 85610; 93005; 93306; 93922; 93978; 96361; 96372; 96374; 96376; 97161; 97165; 99221; 99252; 99283; J7030; Q9957; A4216; G0378; G0463

== ENCOUNTER → 2023-02-22 | Outpatient (CLI) | payer MEDICARE, MEDICAID, SELFPAY ==
--- NOTE | 2023-02-22 08:29 | ART_ITS ---
Reason For Study: Claudication Procedure A bilateral lower extremity continuous wave Doppler with analog waveform analysis and ankle brachial indexes. Left Segmental Pressures Left brachial= 206mmHg. Left posterior tibial artery = 209mmHg. Left dorsalis pedis artery = 218mmHg. Left digit = 153 mmHg. The left dorsalis pedis waveforms are triphasic. The left posterior tibial artery waveforms are triphasic. Right Segmental Pressures Right brachial= 205mmHg. Right posterior tibial artery = 210mmHg. Right dorsalis pedis artery = 210mmHg. Right digit = 160 mmHg. The right dorsalis pedis waveforms are triphasic. The right posterior tibial artery waveforms are triphasic. Indices The right ankle brachial index by the dorsalis pedis is 1.02. The right ankle brachial index by the posterior tibial artery is 1.02. The right digital-brachial index is 0.78. The left ankle brachial index by the dorsalis pedis is 1.06. The left ankle brachial index by the posterior tibial artery is 1.01. The left digital-brachial index is 0.74. . Preliminary report of BP of 202/100 to RN @ [facility]. No repsonse after 30 minutes. BP after 30 minutes was 204/102. Took patient to ED. VL/Ankle Brachial Index Interpretation Summary Bilateral legs normal at rest with triphasic flow and ADEEL 1.02/1.06 and DBI 0.7 8/0.74. Ordering Physician: Patrick López Referring Physician: Adrienne Mac Performed By: Elizabeth Iraheta RVT
--- NOTE | 2023-02-22 08:29 | AAVD_ITS ---
Reason For Study: AAA w/repair Aorta Measurements Aorta Doppler Measurements Proximal aorta measures3.83 x 3.96cm. in cross- Peak systolic flow velocities within the proximal sectional axis. aorta measure 99.5 cm/sec. Proximal aorta measures3.84cm. in longitudinal Mid, Limb 1, 168.2 cm/sec. axis. Mid, Limb 2, 165.6 cm/sec. Proximal aorta mural thrombus. Distal, Limb 1, 61.7 cm/sec. Prox true lumen, 2.18 x 2.25 x 1.94 cm. Distal, Limb 2, 81 cm/sec. Mid, Limb 1, 1.22 x 1.19 x 1.28 cm. Mid Limb 2, 1.32 x 1.32 x 1.31 cm. Mid residual sac, 4.09 x 4.52 x 4.27 cm. Distal, Limb 1, 1.14 x 1.14 x 0.97 cm. Distal, Limb 2, 1.49 x 1.51 x 1.45 cm. Distal residual sac, 3.15 x 3.05 x 2.94 cm. Left Iliac Artery Left iliac artery measures 0.93 x 0.97 cm. in the cross-sectional axis. Left iliac artery measures 1.00 cm. in the longitudinal axis. Peak systolic velocity in the left iliac artery measures 65 cm/sec. Right Iliac Artery Right iliac artery measures 1.45 x 1.45 cm. in the cross-sectional axis. Right iliac artery measures 1.47 cm. in the longitudinal axis. Peak systolic velocity in the right iliac artery measures 33 cm/sec. Procedure Aorta IVC Iliac vasculature or bypass grafts [id number]. Exam performed in department. VL/Abd Aortic/IVC Duplex scan Interpretation Summary No endoleak and residual sac 4.52. Prox aorta 3.96. Ordering Physician: Patrick López Referring Physician: Adrienne Mac Performed By: Elizabeth Iraheta RVT
== END | disposition home or self-care (01) ==
LOC: CVS 08:25
PROVIDERS: PCP Student in an Organized Health Care Education/Training Program; Referring Provider Surgery Vascular Surgery; Visit Provider Surgery Vascular Surgery
DX: I70.213 Atherosclerosis of native arteries of extremities with intermittent claudication, bilateral legs (principal); I71.43 Infrarenal abdominal aortic aneurysm, without rupture; F17.200 Nicotine dependence, unspecified, uncomplicated
CPT/HCPCS: 93922; 93978